=== PATIENT | female | born 1945 | race Caucasian/White ===

== ENCOUNTER 2020-01-19 18:58 | Emergency (ER) | payer SELFPAY ==
--- OUTSIDE RECORDS SUMMARY | 2020-01-19 19:46 | XMS REPORT | Continuity of Care Document ---
:1945 Author Organization [facility] t Address [address] [place] [address] Care Team Providers Name Role Phone Unavailable Unavailable Unavailable Problems Condition Condition Condition Status Onset Resolution Last Treating Co mments Source Name Details Category Date Date Treatment Clinician Date Other Other Problem Active [facility] specified specified Luke s - hypothyroi hypothyroi Me moria dism dism l [facility] Primary Primary Problem Active [facility] insomnia [facility] Essential Essential Problem Active [facility] (primary) (primary) Luke s - hypertensi hypertensi Me moria on on l [facility] Hypothyroi Hypothyroi Problem Active [facility] dism, dism, [facility] - unspecifie unspecifie Me moria d type d type l [facility] Anxiety Anxiety Problem Active [facility] Screening Screening Problem Active [facility] for breast for breast Felicity s - cancer cancer [facility] Allergies, Adverse Reactions, Alerts Allergy Allergy Status Severity Reaction(s) Onset Inactive Treating Comm ents Source Name Type Date Date Clinician Sudafed Adverse Active tachycardia [facility] Reaction [facility] Medications Ordered Filled Start Stop Current Ordering Indication Dosage Frequency Signature Comments Components Source Medication Medication Date Date Medication? Clinician (SIG) Name Name Levothyroxi Levothyroxi Yes Anette [address] [facility] ne Sodium ne Sodium Titus in the Felicity ke - morning on Memoria an empty l stomach [facility] Vitamin C Vitamin C Yes Anette as [facility] directed [facility] Aspir- Yes Anette [address] [facility] Metoprolol Metoprolol Yes Anette [address] [facility] [address] Tartrate Tartrate Titus with food [facility] Lisinopril- Lisinopril- Yes Anette [address] [facility] Hydrochloro Hydrochloro Titus [facility] - thiazide thiazide [facility] Omeprazole Omeprazole Yes Anette [address] [facility] Procedures This patient has no known procedures. Encounters Start End Encounter Admission Attending Care Care Encounter Source Date/Time Date/Time Type Type Clinicians Facility Department ID 2019-12-08 2019-12-08 [facility] [id number] [facility] 14[facility]00 14[facility]00[facility]00 [facility] 2019-06-09 2019-06-09 [facility] [id number] [facility] 14:40[facility]00 14:40:00 [facility] 2019-05-20 2019-05-20 [facility] [id number] [facility] 10:29:00 10:29:00 [facility] 2019-05-12 2019-05-12 [facility] [id number] [address] 14:52:00 14:52:00 [facility] 2019-03-17 2019-03-17 [facility] [id number] 13:00:00 13:00:00 [facility] 2018-05-20 2018-05-20 [facility] [id number] [facility] 09:37:00 09:37:00 [facility] 2018-05-08 2018-05-08 [facility] [id number] [facility] 11:30:00 11:30:00 [facility] Results This patient has no known results.
--- OUTSIDE RECORDS SUMMARY | 2020-01-19 19:46 | XMS REPORT ---
:1945 Author Organization eClinicalWorks Care Team Providers Name Role Phone Anette Childs Provider Role Unavailable Allergies, Adverse Reactions, Alerts Substance Reaction Event Type Sudafed tachycardia Drug Allergy Problems Problem Type Condition Code Onset Dates Condition Statu s Assessment Primary insomnia F51.01 Active Assessment Essential (primary) hypertension I10 Active Assessment Hypothyroidism, unspecified type E03.9 Active Problem Anxiety F41.9 Active Problem Hypothyroidism, unspecified type E03.9 Active Problem Screening for breast cancer Z12.39 Active Problem Primary insomnia F51.01 Active Problem Essential (primary) hypertension I10 Active Problem Other specified hypothyroidism E03.8 Active Medications Medication Code Code Instructions Start End Status Dosage System Date Date Vitamin C [facility] 12820862022 500 MG Orally Active as d irected Levothyroxine ND 41199977095 25MCG Orally Active 1 tablet in Sodium Once a day the morning on an empty stomach Aspir-81 [facility] 88994857486 81 MG Orally Active 1 tabl et Once a day Metoprolol [facility] 76697466707 50 MG Orally Active 1 ta blet Tartrate Twice a day with food Omeprazole ND 69206716597 20 MG Orally Active 1 ca psule Once a day Lisinopril-[place] ND 77265422399 20-12.5 MG Active 1 tablet chlorothiazide Orally Once a day Results No Known Results Summary Purpose eClinicalWorks Submission
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
[2020-01-19 23:45] VITALS: BP 151/90; TEMP 97.6; O2SAT 97
== END 2020-01-19 23:41 | disposition left against medical advice (07) ==
LOC: ER 18:58
DX: Z53.21 Procedure and treatment not carried out due to patient leaving prior to being seen by health care provider (principal)
CPT/HCPCS: 99281

== ENCOUNTER 2020-01-20 11:01 | Emergency (ER) | payer OTHER ==
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
--- OUTSIDE RECORDS SUMMARY | 2020-01-20 12:37 | XMS REPORT ---
[...] Status Dosage System Date Date Vitamin C [facility] 38051318682 500 MG Orally Active as d irected Levothyroxine ND 29510276353 25MCG Orally Active 1 tablet in Sodium Once a day the morning on an empty stomach Aspir-81 [facility] 85730173010 81 MG Orally Active 1 tabl et Once a day Metoprolol [facility] 66605616450 50 MG Orally Active 1 ta blet Tartrate Twice a day with food Omeprazole ND 25689672032 20 MG Orally Active 1 ca psule Once a day Lisinopril-[place] ND 51338183763 20-12.5 MG Active 1 tablet chlorothiazide Orally Once a day Results No Known Results Summary Purpose eClinicalWorks Submission
--- OUTSIDE RECORDS SUMMARY | 2020-01-20 12:37 | XMS REPORT | Continuity of Care Document ---
:1945 Author Organization [facility] Address [address] [place] [address] [address] [place] [address] Care Team Providers Name Role Phone Unavailable Unavailable Unavailable Problems Condition Condition Condition Status Onset Resolution Last Treating Co mments Source Name Details Category Date Date Treatment Clinician Date Other Other Problem Active [facility] specified specified [facility] - hypothyroi hypothyroi Me moria dism dism l [facility] Primary Primary Problem Active [facility] Essential Essential Problem Active [facility] (primary) (primary) [facility] - hypertensi hypertensi Me moria on on l [facility] Hypothyroi Hypothyroi Problem Active [facility] dism, dism, [facility] - unspecifie unspecifie Me moria d type d type l [facility] Anxiety Anxiety Problem Active [facility] Screening Screening Problem Active [facility] for breast for breast [facility] - cancer cancer [facility] Allergies, Adverse Reactions, Alerts Allergy Allergy Status Severity Reaction(s) Onset Inactive Treating Comm ents Source Name Type Date Date Clinician Sudafed Adverse Active tachycardia [facility] Reaction [facility] Medications Ordered Filled Start Stop Current Ordering Indication Dosage Frequency Signature Comments Components Source Medication Medication Date Date Medication? Clinician (SIG) Name Name Levothyroxi Levothyroxi Yes Anette [address] [facility] ne Sodium ne Sodium [place] in the Felicity kes - morning on Memoria an empty l stomach [facility] Vitamin C Vitamin C Yes Anette as [facility] [place] directed [facility] Aspir- Aspir- Yes Anette [address] [place] [facility] Metoprolol Metoprolol Yes Anette [address] [facility] Tartrate Tartrate [place] with food [facility] Lisinopril- Lisinopril- Yes Anette [address] [facility] Hydrochloro Hydrochloro [place] [facility] thiazide [facility]ide [facility] Omeprazole Omeprazole Yes Anette [address] [facility] [place] [facility] Procedures This patient has no known procedures. Encounters Start End Encounter Admission Attending Care Care Encounter Source Date/Time Date/Time Type Type Clinicians Facility Department ID 2019-12-08 2019-12-08 [facility] [id number] [facility] 2019-06-09 2019-06-09 [facility] [id number] [facility] 14[facility]00 14[facility]40[facility]00 [facility] Clin[facility] 2019-05-20 2019-05-20 [facility] [id number] [facility] 10:29:00 10[facility]29[facility]00 [facility] 2019-05-12 2019-05-12 [facility] [id number] [facility] 14:52:00 14[facility]52[facility]00 [facility] 2019-03-17 2019-03-17 [facility] [id number] [facility] 13[facility] 13[facility] 2018-05-20 2018-05-20 [facility] [id number] [facility] 09:37:00 09:37[facility]00 [facility] 2018-05-08 2018-05-08 [facility] [id number] [facility] 11:30:00 11:30[facility]00 [facility] Results This patient has no known results.
[2020-01-20] MEDS ORDERED: ONDANSETRON 4 MG (ODT) TAB ONE (12:39)
[2020-01-20] MEDS ORDERED: TRAMADOL HCL 50 MG TAB ONE (12:40)
[2020-01-20 12:55] VITALS: BP 128/50; TEMP 97.2; O2SAT 97
== END 2020-01-20 12:51 | disposition home or self-care (01) ==
LOC: ER 11:01
DX: S16.1XXA Strain of muscle, fascia and tendon at neck level, initial encounter (principal); R51 Headache; V43.52XA Car driver injured in collision with other type car in traffic accident, initial encounter; Y93.89 Activity, other specified; Y92.9 Unspecified place or not applicable; Z88.6 Allergy status to analgesic agent
CPT/HCPCS: 70450; 72125; 99284